=== PATIENT | female | born 2000 | race Caucasian/White ===

== ENCOUNTER 2020-06-20 19:37 | Emergency (ER) | payer MEDICARE ==
[~2020-06-20] VITALS: Ht 167.6 cm; Wt 115.0 kg
[2020-06-20 21:03] LABS: BASOPHILS % (AUTO) 0.8 % (0.0-2.0); EOSINOPHILS % (AUTO) 1.7 % (1.0-6.0); HEMATOCRIT 40.2 % (36-46); HEMOGLOBIN 13.8 g/dL (12.0-16.0); LYMPHOCYTES # (AUTO) 3.2 K/uL (1.0-4.8); LYMPHOCYTES % (AUTO) 27.3 % (22.0-44.0); MEAN CORPUSCULAR HEMOGLOBIN 30.8 pg (26.0-34.0); MEAN CORPUSCULAR HGB CONC 34.3 G/dL (31.0-37.0); MEAN CORPUSCULAR VOLUME 90 fL (80-100); MONOCYTES # (AUTO) 0.7 K/uL (0.1-1.0); MONOCYTES % (AUTO) 6.2 % (2.0-9.0); NEUTROPHILS # (AUTO) 7.5 K/uL (1.8-7.7); PLATELET COUNT (AUTO) 351 K/uL (150-450); RED BLOOD CELL COUNT(AUTO) 4.48 MIL/uL (4.00-5.20); RED CELL DISTRIBUTION WIDTH 13.5 % (11.5-14.5)
[2020-06-20 21:13] LABS: ANION GAP 8 mmol/L (8-16); CARBON DIOXIDE 29 mmol/L (22-29); CHLORIDE 104 mmol/L (98-107); CREATININE 0.68 mg/dL (0.60-1.30); GLOMERULAR FILTR. RATE CALC > 60 mL/min (>60); GLUCOSE,RANDOM 93 mg/dL (70-110); POTASSIUM 3.5 mmol/L (3.5-5.1); SODIUM SERUM 141 mmol/L (136-145); UREA NITROGEN, BLOOD 9 mg/dL (7-18)
[2020-06-20 21:25] LABS: ALANINE AMINOTRANSFERASE 33 U/L (12-78); ALBUMIN 3.8 g/dL (3.4-5.0); ALKALINE PHOSPHATASE 95 U/L (46-116); ASPARTATE AMINOTRANSFERASE 17 U/L (15-37); BILIRUBIN,TOTAL 0.4 mg/dL (0.1-1.0); HCG,QUANTITATIVE 1 mIU/mL (0-6); TOTAL PROTEIN, SERUM 7.8 g/dL (6.4-8.2)
[2020-06-20 23:11] VITALS: BP 135/43
== END 2020-06-20 23:16 | disposition home or self-care (01) ==
LOC: EMS 19:43
DX: F41.9 Anxiety disorder, unspecified (principal); F43.9 Reaction to severe stress, unspecified
CPT/HCPCS: 93005; 36415-L1; 36415-TC; 71045-TC

== ENCOUNTER 2022-09-16 20:44 | Emergency (ER) | payer MEDICARE, OTHER ==
[~2022-09-16] VITALS: Ht 167.6 cm; Wt 115.0 kg
[2022-09-16] MEDS ORDERED: LIDOCAINE 1% 10 ML VIAL PERC ONE (22:00)
[2022-09-16] MEDS ORDERED: KETOROLAC TROMETHAMINE 10 MG TABLET PO ONE (22:00)
[2022-09-16] MEDS ORDERED: GABAPENTIN 300 MG CAPSULE PO ONE (22:00)
[2022-09-16] MEDS ORDERED: BACITRACIN 0.9 GM PACKET OINTMENT TP ONE (22:15)
[2022-09-16] MEDS ORDERED: CEPH-558 PO (22:54)
[2022-09-16] MEDS ORDERED: GABA-1181 PO (22:54)
[2022-09-16 23:04] VITALS: BP 134/71
== END 2022-09-16 23:03 | disposition home or self-care (01) ==
LOC: EMS 20:50
DX: S61.307A Unspecified open wound of left little finger with damage to nail, initial encounter (principal); X58.XXXA Exposure to other specified factors, initial encounter; Y93.89 Activity, other specified; Y92.89 Other specified places as the place of occurrence of the external cause; Y99.8 Other external cause status
CPT/HCPCS: 99285; 11750; J3490

== ENCOUNTER 2023-02-15 18:57 | Emergency (ER) | payer OTHER ==
[~2023-02-15] VITALS: Ht 167.6 cm; Wt 115.9 kg
[~2023-02-15 18:57] MED LIST: CEPH-558 PO; GABA-1181 PO
[2023-02-15] MEDS ORDERED: ACETAMINOPHEN 500 MG TABLET PO ONE (19:45)
[2023-02-15 20:14] LABS: COVID AG,FIA SOURCE NASOPHARYNGEAL
[2023-02-15 20:15] LABS: APPEARANCE,URINE CLEAR (CLEAR); BILIRUBIN,URINE NEGATIVE (NEGATIVE); GLUCOSE, URINE (UA) >=1000 mg/dL (NEGATIVE); KETONES,URINE TRACE mg/dL (NEGATIVE); LEUKOCYTE ESTERASE ,URINE SMALL (NEGATIVE); NITRATE,URINE NEGATIVE (NEGATIVE); OCCULT BLOOD,URINE NEGATIVE (NEGATIVE); PROTEIN,URINE NEGATIVE (NEGATIVE); SPECIFIC GRAVITIY, URINE 1.036 (1.003-1.030); UROBILINOGEN,URINE <=1.0 mg/dL (<=1.0)
[2023-02-15 20:24] LABS: AMPHET/METH SCREEN,URINE NEGATIVE (NEGATIVE); BARBITURATE SCREEN, URINE NEGATIVE (NEGATIVE); BENZODIAZEPINES SCREEN,URINE NEGATIVE (NEGATIVE); CANNABINOID SCREEN,URINE NEGATIVE (NEGATIVE); COCAINE SCREEN,URINE NEGATIVE (NEGATIVE); METHADONE SCREEN, URINE NEGATIVE (NEGATIVE); OPIATE SCREEN,URINE NEGATIVE (NEGATIVE); PHENCYCLIDINE SCREEN,URINE NEGATIVE (NEGATIVE)
[2023-02-15 20:26] LABS: BASOPHILS % (AUTO) 0.5 % (0.0-2.0); EOSINOPHILS % (AUTO) 1.8 % (1.0-6.0); HEMATOCRIT 40.2 % (36-46); HEMOGLOBIN 13.8 g/dL (12.0-16.0); LYMPHOCYTES # (AUTO) 2.5 K/uL (1.0-4.8); LYMPHOCYTES % (AUTO) 24.8 % (22.0-44.0); MEAN CORPUSCULAR HEMOGLOBIN 30.7 pg (26.0-34.0); MEAN CORPUSCULAR HGB CONC 34.4 G/dL (31.0-37.0); MEAN CORPUSCULAR VOLUME 89 fL (80-100); MONOCYTES # (AUTO) 0.6 K/uL (0.1-1.0); MONOCYTES % (AUTO) 5.5 % (2.0-9.0); NEUTROPHILS # (AUTO) 6.8 K/uL (1.8-7.7); NEUTROPHILS % (AUTO) 67.4 % (40.0-70.0); PLATELET COUNT (AUTO) 293 K/uL (150-450); RED BLOOD CELL COUNT(AUTO) 4.51 MIL/uL (4.00-5.20); RED CELL DISTRIBUTION WIDTH 13.2 % (11.5-14.5)
[2023-02-15 20:37] LABS: ANION GAP 10 mmol/L (8-16); CALCIUM, TOTAL 8.7 mg/dL (8.8-10.5); CARBON DIOXIDE 27 mmol/L (22-29); CHLORIDE 97 mmol/L (98-107); CREATININE 0.85 mg/dL (0.60-1.30); GLOMERULAR FILTR. RATE CALC > 60 mL/min (>60); GLUCOSE,RANDOM 375 mg/dL (70-110); POTASSIUM 3.3 mmol/L (3.5-5.1); SODIUM SERUM 134 mmol/L (136-145)
[2023-02-15 20:39] LABS: PROTHROMBIN TIME 10.2 SEC (9.4-11.6)
[2023-02-15 20:41] LABS: BACTERIA,URINE None Seen /HPF (None Seen); RBC,URINE None Seen /HPF (0-2); SQUAMOUS EPITHELIAL CELL,UR Few /LPF (None Seen)
[2023-02-15] MEDS ORDERED: SODIUM CHLORIDE 0.9% 1,000 ML IV ONE (20:45)
[2023-02-15 20:49] LABS: ALANINE AMINOTRANSFERASE 40 U/L (12-78); ALBUMIN 3.5 g/dL (3.4-5.0); ALKALINE PHOSPHATASE 86 U/L (46-116); ASPARTATE AMINOTRANSFERASE 21 U/L (15-37); BILIRUBIN,TOTAL 0.6 mg/dL (0.1-1.0); CREATINE KINASE, TOTAL ONLY 57 U/L (26-192); HCG,QUANTITATIVE < 1 mIU/mL (0-6)
[2023-02-15 21:03] LABS: B-TYPE NATRIURETIC PEPTIDE < 5 pg/mL (0-100)
[2023-02-15 23:16] VITALS: BP 102/52
== END 2023-02-16 00:39 | disposition home or self-care (01) ==
LOC: EMS 18:58
DX: N93.8 Other specified abnormal uterine and vaginal bleeding (principal); N83.209 Unspecified ovarian cyst, unspecified side; R73.9 Hyperglycemia, unspecified; Z20.822 Contact with and (suspected) exposure to COVID-19
CPT/HCPCS: 99284; 96360; 96361; 76830; 76856; 87426; 80053; 82550; 83735; 83880; 84484; 84702; 84703; 85025; 85610; 85730; 86901; 81025; 93005; 81001; 36415; 80307 ×2; G0480; J7030